=== PATIENT | female | born 1950 | race Caucasian/White ===

== ENCOUNTER → 2016-10-02 | Day surgery (SDC) | payer OTHER ==
[~2016-10-02] VITALS: Ht 157.5 cm; Wt 60.8 kg
[~2016-10-02] MED LIST: ASPIRIN EC81 M1 PO; CALTRATE 600 +1 EACH PO; DIOVAN160 MG PO; GLUCOPHAGE1000 M1 PO; LIPITOR20 M2 PO; MULTI-DAY VITA1 EACH PO; VITAMIN B-121000 MC3 PO
--- NOTE | 2016-10-02 15:12 | Operative Report ---
Operative/Inv Procedure Report Surgery Date: 10/02/16 Name of Procedure: Right partial mastectomy and sentinel lymph node biopsy Pre-Operative Diagnosis: Right breast cancer, clinical stage I Post-Operative Diagnosis: Same Estimated Blood Loss: less than 50ml Surgeon/Emergency Department Aide: GLENROY WHITT MD Anesthesia: laryngeal mask airway Specimens: Webster lymph node, right lumpectomy Operative/Procedure Note Note: Patient brought to the operating room 10/02/2016. She was placed under anesthesia and given 2 g of Ancef. 3 mL of methylene blue diluted with 2 mL saline was injected in the retroareolar fashion. Both breasts were prepped and draped in a sterile fashion ChloraPrep. Preoperative wire localization and lymphoscintigraphy performed and those films reviewed. The right axilla was approached first. Marcaine was administered and an incision was made. Skin and subcutaneous tissue was dissected down to the axilla. A single hot, blue lymph node was identified and excised. There were no other hot, blue, or palpable lymph nodes identified and the axilla. The tissue was proximal made using interrupted Vicryl sutures, and the skin was closed using a running Biosyn subcutaneous stitch. The breast was then approached. An incision was made and the breast tissue was dissected from the skin down to encompass the known malignancy. A wide lumpectomy was performed and marked for orientation using margin map. Additional margins were not taken. Intraoperative x-ray confirmed the presence of the clip in the specimen. All breast tissue laterally to the excised specimen will be removed and the reduction specimen, therefore the medial aspect of the lumpectomy was marked using mammary clips. Hemostasis was adequate and the procedure was turned over to Dr. Bartlett completed the procedure.
--- NOTE | 2016-10-02 16:45 | MAMMOGRAPHY REPORT ---
EXAMINATION: MM PREOPERATIVE LOCALIZATION BREAST, RIGHT CLINICAL INFORMATION: A 66-year-old female with invasive ductal carcinoma, diagnosed on ultrasound-guided biopsy done on 08/18/2016. Preoperative needle localization is requested. TECHNIQUE: After the details of the procedure, as well as the risks, benefits and alternatives to the procedure, were explained to the patient in detail, and all of her questions were answered, preoperative needle localization was performed. Mammographic imaging of the right breast in the LM projection confirms the presence of a tissue marker (ribbon-shaped metallic clip) at the site of the prior ultrasound-guided biopsy at 8:30 o'clock, 6 cm from the nipple. The skin of the right breast was then cleansed with sterile solution. Using mammographic guidance, aseptic technique and 2% 10 mL lidocaine for local anesthesia, a 7 cm EpiGaN needle-wire system was advanced into the breast from a lateral approach. Orthogonal views were then obtained. Final adjustments of the needle tip position were made, and the wire deployed. The needle was taken out. The patient tolerated the procedure well, and was discharged from the department of radiology in good stable condition. The images were appropriately labelled. A worksheet was appropriately filled out and was sent with the patient to the OR. IMPRESSION: Successful mammographically-guided preoperative needle localization of the biopsy-proved invasive ductal carcinoma within the right breast at 8:30 o'clock, 6 cm from the nipple. EXAMINATION: MM NEEDLE LOCALIZATION SPECIMEN FROM BREAST, RIGHT. TECHNIQUE: Single radiograph of the excised breast tissue is performed. FINDINGS: The specimen shows the hook wire is delivered intact. The biopsy clip marker and a few nonspecific calcifications are identified in the specimen. IMPRESSION: Successful needle localization of the biopsy-proven invasive ductal carcinoma within the right breast, at 8:30 o'clock, 6 cm from the nipple. Results were called to Dr. Box in the operating room at the time of imaging. The histology report is pending.
--- NOTE | 2016-10-02 17:00 | Operative Report ---
Operative/Inv Procedure Report Surgery Date: 10/02/16 Name of Procedure: Bilateral breast reconstruction via other techniqueuncle plastic breast reduction bilaterally Pre-Operative Diagnosis: Breast cancer right, breast hypertrophy bilateral Post-Operative Diagnosis: Same Estimated Blood Loss: 50ml to 100ml Surgeon/Doctor Of Medicine: KIEL BANUELOS,DEEP Domingo Anesthesia: general endotracheal tube Operative/Procedure Note Note: Patient was counseled regards to the procedure the alternatives risks and expected outcomes as relates to her request for surgical intervention to treat breast macromastia as well as the need to have a breast cancer removed on the right side which will leave a disfiguring deformity and will require reconstruction. We talked about the on-call plastic reduction mostly consisting of bilateral breast reduction in addition to excision of breast cancer on the right with Michell Box MD. We talked about possibility of partial complete loss of the nipple areolar complex sensitivity or tissue infection bleeding open wounds definite asymmetry similar to preop definitely visible scarring possibly unsightly or symptomatic pain numbness area once agreed informed consent was signed. After receiving a wire localization she was marked for inferior pedicle Timmons pattern technique with additional difficulty forming this task with the wire in place. Taken to the operating room prepped and draped usual sterile fashion. Venodyne boots are placed and then general endotracheal anesthesia was established intravenous antibiotics given. Dr. Winslow began on the right side please see separate dictation. The access point for the breast cancer excision. He was done on the left removing superior medial and lateral segments after developing a skin flap and appropriate sized pedicle. Michell Box MD was completed additional workup was done and the capsule i.e. placing additional clips in the lateral portion of the area of excision. The inferior pedicle was developed leaving additional tissue medially in deviation from the original plan due to the of rest cancer surgery. She was put in the sitting position after temporary closure where the nipple areolar complexes were placed with direct measurement.
== END ==
LOC: EDSTATUS 07:00 → STS 07:00 → UNDOADMIN 10:17 → SDA 10:17
DX: C50.911 Malignant neoplasm of unspecified site of right female breast (principal); Z17.1 Estrogen receptor negative status [ER-]; N62 Hypertrophy of breast; E11.39 Type 2 diabetes mellitus with other diabetic ophthalmic complication; Z79.84 Long term (current) use of oral hypoglycemic drugs; I10 Essential (primary) hypertension
CPT/HCPCS: SDA; 88305; 88307; A9520; J0131; J0690; J2001